=== PATIENT | female | born 1990 | race Caucasian/White ===

== ENCOUNTER 2016-09-13 19:45 | Observation (INO) | payer BC ==
--- NOTE | ~2016-09-13 | OP ---
Record Of Operation [facility] [address] [place]. [address] NAME: JEANNINE FRANKS : 86 STATUS : DIS Toro PAT#: [id number] AGE: 26 ADM/REG DATE : 09/13/16 MR#: [id number] REPORT SERV DATE: 09/15/16 DICTATED BY: NAVNEET RAMOS DATE: 09/15/16 REPORT STATUS : Draft TRANSCRIBED BY: MODL DATE: 09/15/16 DATE OF PROCEDURE: 09/14/2016 PREOPERATIVE DIAGNOSIS: Acute appendicitis. POSTOPERATIVE DIAGNOSIS: Acute appendicitis. PROCEDURE: Laparoscopic appendectomy. SURGEON: Navneet Ramos M.D. DESCRIPTION OF OPERATIVE PROCEDURE: This young woman is approximately 12 days following laparoscopic left ovarian dermoid cyst removal by Dr. Kan Singh at [facility]. She presented with CT imaging consistent with acute appendicitis. Initially, the patient was brought to operating suite, placed in supine position, underwent satisfactory general endotracheal anesthesia. The skin of the abdomen was scrubbed, prepped, and draped in usual sterile fashion. 0.5% Marcaine with epinephrine utilized at all trocar sites. Initially, an epigastric incisions was performed longitudinally, disposable Veress insufflation needle was inserted through the midline fascia into the peritoneal cavity. The intraperitoneal tip location was ascertained using the saline hanging drop method, following which CO2 was insufflated for pressures of 15 mmHg throughout the case. After adequate insufflation and pressure were achieved, the Veress needle was removed, disposable non-bladed 5-mm Optiview trocar was inserted into the peritoneal cavity following which a rigid forward-viewing 5-mm laparoscope was inserted. Visualization of the intraabdominal parietes revealed no evidence of injury from the initial insufflation or puncture. A 12 mm trocar was established at the umbilicus and then utilized one of our previous suprapubic incisions, an another 5 mm trocar was inserted. The camera was maintained at the 5 mm epigastric trocar. Attention was turned to the pelvis, there were some thin bloody fluid consistent with either a ruptured ovarian cyst or recent pelvic surgery. The uterus and adnexal structures were examined and the right adnexa was normal, left adnexa was missing, due to the recent surgery. Attention was then turned to the ileocecum. The appendix was moderately inflamed, especially in the central aspect, it was grasped and elevated, and the cecum was mobilized from its retroperitoneal attachments to the right pelvic sidewall using the cautery. An avascular window was created at the base of the appendix between the appendix, and the cecum, and the mesentery. An Endo-JAYME 45 mm linear stapler was placed across this, actuated and fired transecting the appendix from the cecal base. Hemostasis was assured. Following this, a second vascular load utilizing the same device was utilized to transect the Record Of Operation [facility] [address] [place]. [address] NAME: JEANNINE FRANKS : 86 STATUS : DIS Toro PAT#: [id number] AGE: 26 ADM/REG DATE : 09/13/16 MR#: [id number] REPORT SERV DATE: 09/15/16 DICTATED BY: NAVNEET RAMOS DATE: 09/15/16 REPORT STATUS : Draft TRANSCRIBED BY: MODL DATE: 09/15/16 mesoappendix. Hemostasis again was ensured. Irrigation was performed and the appendix was placed inside an Endo retrieval pouch. The area of the right lower quadrant and pelvis was irrigated copiously and then this was all aspirated and also the right subcostal area. Then, laparoscopy was terminated by removing the trocars, no muscular bleeding was noted. CO2 was allowed to egress from peritoneal cavity. The umbilicus was closed with figure-of- eight suture of 0 Vicryl, subcutaneous tissue closed at all sites with interrupted 4-0 Vicryl, running subcuticular stitch 4-0 Vicryl for the skin. Dermabond and skin adhesive were applied. The patient tolerated procedure quite well and she was returned to PACU in stable condition. At the termination of the procedure sponge, needle, lap, and instrument counts were correct x3. ESTIMATED BLOOD LOSS: Negligible. WR/MODL Navneet Ramos M.D. / [id number] CC: Navneet Ramos M.D.
[2016-09-13 22:02] LABS: BASOPHILS 0.5 %; BASOPHILS ABSOLUTE 0.03 10/3/uL (0.0-0.16); EOSINOPHILS 2.1 %; EOSINOPHILS ABSOLUTE 0.14 10/3/uL (0.0-0.53); ER CBC TAT 0 Hrs 05 Mins; HEMATOCRIT 39.3 % (36.0-48.0); HEMOGLOBIN 13.7 g/dL (12.0-16.0); IMMATURE GRANULOCYTES 0.2 %; IMMATURE GRANULOCYTES ABSOLUTE 0.01 10/3/uL (0.0-0.11); LYMPHOCYTES 32.2 %; LYMPHOCYTES ABSOLUTE 2.12 10/3/uL (0.67-4.30); MEAN CORPUS HGB CONC 34.9 g/dL (32.0-36.0); MEAN CORPUSCULAR HEMOGLOB 31.6 pg (26.0-34.0); MEAN CORPUSCULAR VOLUME 90.6 fL (80-100); MEAN PLATELET VOLUME 8.8 fL (9.2-13.0); MONOCYTES ABSOLUTE 0.46 10/3/uL (0.21-1.20); NEUTROPHILS ABSOLUTE 3.82 10/3/uL (2.02-8.40); RBC DISTRIBUTION WIDTH 11.3 % (12.0-16.0); RED CELL COUNT 4.34 10/6/uL (4.0-5.6); WHITE BLOOD CELLS 6.6 10/3/uL (4.5-10.5)
[2016-09-13 22:03] LABS: MANUAL DIFF NO %; PLATELET COUNT 405 10/3/uL (150-400)
[2016-09-13 22:17] LABS: ALBUMIN 3.4 G/DL (3.5-5.0); BUN (BLOOD UREA NITROGEN) 14 MG/DL (6-23); CHLORIDE, SERUM 105 MMOL/L (96-112); CO2 (CARBON DIOXIDE) 28 MMOL/L (24-34); CREATININE 0.92 MG/DL (0.55-1.02); GFR AFRICAN AMERICAN 98 ML/MIN (>=60); GFR NON AFRICAN AMERICAN 85 ML/MIN (>=60); GLUCOSE, SERUM 75 MG/DL (60-99); POTASSIUM, SERUM 3.6 MMOL/L (3.5-5.3); SGOT(AST) 18 U/L (5-40); SGPT(ALT) 29 U/L (5-65); SODIUM, SERUM 140 MMOL/L (135-148); TOTAL BILIRUBIN 0.5 MG/DL (0-1.2)
[2016-09-13 22:18] LABS: A/G RATIO 0.7 (0.7-1.9); ALKALINE PHOSPHATASE 73 U/L (45-117); GLOBULIN 4.6 G/DL (2.5-4.1)
[2016-09-13 22:20] LABS: ASCORBIC ACID (UR NOT ORDER) NEG (NEG); BILIRUBIN, URINE NEGATIVE (NEG); ER URINALYSIS TAT 0 Hrs 23 Mins; KETONE, URINE TRACE MG/DL (NEG); LEUKOCYTE ESTERASE(NOT OR NEG (NEG); NITRITE (URINE) NEG (NEG); WBC (NOT ORDERED) (RFLEX) 17 (0-5)
[2016-09-13] MEDS ORDERED: OXYCOD PO (23:18)
[2016-09-13] MEDS ORDERED: VYVANSE20 MG PO (23:18)
[2016-09-13] MEDS ORDERED: NUVARING1 EACH V (23:19)
[2016-09-13] MEDS ORDERED: MACROBID PO (23:19)
[2016-09-13] MEDS ORDERED: FLEXERIL5 MG PO (23:19)
[2016-09-13] MEDS ORDERED: ALEVE220 MG PO (23:19)
[2016-09-13] MEDS ORDERED: ZINC PO (23:20)
[2016-09-13] MEDS ORDERED: VITAMIN B PO (23:20)
[2016-09-13] MEDS ORDERED: GINKGO BILO2 PO (23:20)
[2016-09-13] MEDS ORDERED: VITAMIN C PO (23:21)
[2016-09-13] MEDS ORDERED: BENEFIBER PO (23:21)
[2016-09-13] MEDS ORDERED: PROBIOTIC PO (23:21)
[2016-09-13] MEDS ORDERED: ST JOHNS WART PO (23:21)
[2016-09-13] MEDS ORDERED: VITAMIN D PO (23:22)
[2016-09-13] MEDS ORDERED: HARD NAILS PO (23:23)
[2016-09-14 04:38] LABS: BASOPHILS 0.7 %; BASOPHILS ABSOLUTE 0.04 10/3/uL (0.0-0.16); EOSINOPHILS 2.6 %; EOSINOPHILS ABSOLUTE 0.15 10/3/uL (0.0-0.53); HEMATOCRIT 35.5 % (36.0-48.0); HEMOGLOBIN 12.5 g/dL (12.0-16.0); IMMATURE GRANULOCYTES 0.2 %; IMMATURE GRANULOCYTES ABSOLUTE 0.01 10/3/uL (0.0-0.11); LYMPHOCYTES 36.2 %; LYMPHOCYTES ABSOLUTE 2.11 10/3/uL (0.67-4.30); MANUAL DIFF NO %; MEAN CORPUS HGB CONC 35.2 g/dL (32.0-36.0); MEAN CORPUSCULAR HEMOGLOB 31.5 pg (26.0-34.0); MEAN CORPUSCULAR VOLUME 89.4 fL (80-100); MEAN PLATELET VOLUME 8.9 fL (9.2-13.0); MONOCYTES 7.7 %; MONOCYTES ABSOLUTE 0.45 10/3/uL (0.21-1.20); NEUTROPHILS 52.6 %; NEUTROPHILS ABSOLUTE 3.07 10/3/uL (2.02-8.40); PLATELET COUNT 344 10/3/uL (150-400); RBC DISTRIBUTION WIDTH 11.5 % (12.0-16.0); RED CELL COUNT 3.97 10/6/uL (4.0-5.6); WHITE BLOOD CELLS 5.8 10/3/uL (4.5-10.5)
[2016-09-14] MEDS ORDERED: OXYCOD PO (15:38)
[2016-09-14] MEDS ORDERED: CIP5 PO (15:38)
== END 2016-09-14 17:21 | disposition home or self-care (01) ==
LOC: ER 19:45 → 5SO 23:23
PROVIDERS: Emergency Medicine; Specialist
PROC: 0DTJ4ZZ Resection of Appendix, Percutaneous Endoscopic Approach (ICD-10-PCS; principal; 2016-09-14 08:45)
DX: K35.80 Unspecified acute appendicitis (principal); K21.9 Gastro-esophageal reflux disease without esophagitis; Z88.2 Allergy status to sulfonamides; Z87.891 Personal history of nicotine dependence; Z98.890 Other specified postprocedural states
CPT/HCPCS: 80053; 81001; 83690; 84703; 85025; 88304; 96374; 96375; 96376; 99285; A9270-GY; G0378; J1170; J1885; J1956; J2175; J2250; J2405; J2550; J2710; J3010

== ENCOUNTER 2016-09-19 16:32 | Emergency (ER) | payer BC ==
[2016-09-19 16:31] LABS: BASOPHILS 0.5 %; BASOPHILS ABSOLUTE 0.05 10/3/uL (0.0-0.16); EOSINOPHILS 3.3 %; EOSINOPHILS ABSOLUTE 0.32 10/3/uL (0.0-0.53); HEMATOCRIT 38.7 % (36.0-48.0); HEMOGLOBIN 13.7 g/dL (12.0-16.0); IMMATURE GRANULOCYTES 0.2 %; IMMATURE GRANULOCYTES ABSOLUTE 0.02 10/3/uL (0.0-0.11); LYMPHOCYTES 19.1 %; LYMPHOCYTES ABSOLUTE 1.88 10/3/uL (0.67-4.30); MEAN CORPUS HGB CONC 35.4 g/dL (32.0-36.0); MEAN CORPUSCULAR HEMOGLOB 31.8 pg (26.0-34.0); MEAN CORPUSCULAR VOLUME 89.8 fL (80-100); MEAN PLATELET VOLUME 8.6 fL (9.2-13.0); MONOCYTES 5.1 %; NEUTROPHILS 71.8 %; NEUTROPHILS ABSOLUTE 7.06 10/3/uL (2.02-8.40); PLATELET COUNT 394 10/3/uL (150-400); RBC DISTRIBUTION WIDTH 11.6 % (12.0-16.0); RED CELL COUNT 4.31 10/6/uL (4.0-5.6)
[~2016-09-19 16:32] MED LIST: ALEVE220 MG PO; BENEFIBER PO; CIP5 PO; FLEXERIL5 MG PO; GINKGO BILO2 PO; HARD NAILS PO; MACROBID PO; NUVARING1 EACH V; OXYCOD PO; PROBIOTIC PO; ST JOHNS WART PO; VITAMIN B PO; VITAMIN C PO; VITAMIN D PO; VYVANSE20 MG PO; ZINC PO
[2016-09-19 16:33] LABS: ER CBC TAT 0 Hrs 10 Mins; MANUAL DIFF NO %; WHITE BLOOD CELLS 9.8 10/3/uL (4.5-10.5)
[2016-09-19 16:43] LABS: A/G RATIO 0.8 (0.7-1.9); ALBUMIN 3.3 G/DL (3.5-5.0); ALKALINE PHOSPHATASE 69 U/L (45-117); CALCIUM, SERUM 8.8 MG/DL (8.5-10.4); CHLORIDE, SERUM 105 MMOL/L (96-112); CREATININE 0.89 MG/DL (0.55-1.02); GFR AFRICAN AMERICAN 102 ML/MIN (>=60); GFR NON AFRICAN AMERICAN 88 ML/MIN (>=60); GLOBULIN 4.3 G/DL (2.5-4.1); SGOT(AST) 11 U/L (5-40); SGPT(ALT) 14 U/L (5-65); SODIUM, SERUM 139 MMOL/L (135-148); TOTAL BILIRUBIN 0.4 MG/DL (0-1.2); TOTAL PROTEIN 7.6 G/DL (6.0-8.5)
[2016-09-19 16:46] LABS: BUN (BLOOD UREA NITROGEN) 8 MG/DL (6-23); CO2 (CARBON DIOXIDE) 33 MMOL/L (24-34); GLUCOSE, SERUM 92 MG/DL (60-99)
[2016-09-19 16:57] LABS: ASCORBIC ACID (UR NOT ORDER) NEG (NEG); BILIRUBIN, URINE NEGATIVE (NEG); ER URINALYSIS TAT 0 Hrs 15 Mins; KETONE, URINE NEGATIVE (NEG); LEUKOCYTE ESTERASE(NOT OR NEG (NEG); NITRITE (URINE) NEG (NEG); WBC (NOT ORDERED) (RFLEX) 1 (0-5)
== END 2016-09-19 16:39 | disposition left against medical advice (07) ==
LOC: ER 16:32
PROVIDERS: Emergency Medicine
DX: K59.00 Constipation, unspecified (principal); Z53.21 Procedure and treatment not carried out due to patient leaving prior to being seen by health care provider; Z88.2 Allergy status to sulfonamides
CPT/HCPCS: 80053; 81001; 83690; 84703; 85025